=== PATIENT | female | born 1965 | race Caucasian/White ===

== ENCOUNTER → 2017-03-30 | Outpatient (CLI) | payer BC ==
[~2017-03-30] MED LIST: ALDACTONE PO; ATARAX PO; CYMBALTA PO; CYMBALTA30 MG PO; LANOXIN PO; LASIX PO; PREDNISONE PO; PREMARIN PO; PRINIVIL10 MG PO; PROTONIX PO; PROVIGIL PO; PROVIGIL100 MG PO; SYNTHROID PO; SYNTHROID75 MCG PO; ZOLOFT PO
--- NOTE | ~2017-03-30 | MY11 ---
[facility] A Service of [facility] & [facility] RADIOLOGY TEXT RESULTS PATIENT: BIJAL VARGAS LOCATION: [facility] : 63 UNIT #: [id number] AGE: [address]: Ermias Lay II, MD SEX: F ORDER DR: [id number] [facility] [address]. [place], [place] [address] [id number] O MR#: [id number] #: [id number] NAME: BIJAL VARGAS : 1965 SEX: F STUDY DATE/TIME: 03/30/2017 14:59 UNIT: [facility] ROOM: STUDY DESCRIPTION: MY Mammogram Screening Dig Rusty Attending Physician: Ermias Lay M.D. Ordering Physician: Ermias Lay M.D. Primary Care Physician: Ermias Lay M.D. MEDICAL IMAGING REPORT This report is preliminary unless electronic signature is present EXAM Digital screening mammogram 03/30/2017 HISTORY 52-year-old woman, previous breast reduction surgery with augmentation. Right breast implant deflated. No risk elevation. Annual screen. COMPARISON STUDIES 02/25/2011, 03/27/2013, 01/23/2015 FINDINGS Digital imaging of each breast was completed utilizing conventional projections and standard Dat views on the left and conventional projections on the right. Review includes FDA-approved CAD device. Retropectoral saline implant on the left is stable. There is no visible implant on the right side at this time. Breast parenchyma is moderately dense with combination of fibroglandular opacities and fibronodularity. I see no dominant mass and no suspicious microcalcifications. However, in the right breast there is a small area of subtle stellate architectural distortion projecting centrally deep to the nipple and slightly medial to the nipple line. Characteristics favor a radial scar. This will require additional imaging to include true lateral projection and high-resolution spot compression views. Digital breast tomosynthesis would be very useful. With this in mind [facility] Benign appearance of the left breast is stable. IMPRESSION Incomplete mammographic evaluation. Additional right breast imaging is recommended. See full report with recommendations. That is a BIRADS 0 additional right breast imaging recommended. Patients over the age of 40 are entered into a reminder system with target STS. [facility] A Service of [facility] & [facility] RADIOLOGY TEXT RESULTS PATIENT: BIJAL VARGAS LOCATION: [facility] : 63 UNIT #: [id number] AGE: [address]: Ermias Lay II, MD SEX: F ORDER DR: due date for the next mammogram. A result letter will also be sent to the patient. BIRADS: 0 - Need additional imaging evaluation and/or prior mammograms for comparison STAT * RESULT Dictated by... Black Sanders M.D. THIS IS AN ELECTRONICALLY VERIFIED REPORT Black Sanders M.D. at 03/30/2017 3:42 PM Marzena TD: 03/30/2017 15:30 JOB #: [id number] MEDICAL IMAGING REPORT Page 1 of 1 COPY
== END | disposition home or self-care (01) ==
LOC: CMAM 14:47
DX: Z12.31 Encounter for screening mammogram for malignant neoplasm of breast (principal); Z98.82 Breast implant status; R92.8 Other abnormal and inconclusive findings on diagnostic imaging of breast
CPT/HCPCS: G0202

== ENCOUNTER → 2017-04-07 | Outpatient (CLI) | payer BC ==
--- NOTE | ~2017-04-07 | MY8 ---
[facility] A Service of [facility] & [facility] RADIOLOGY TEXT RESULTS PATIENT: BIJAL VARGAS LOCATION: [facility] : 63 UNIT #: [id number] AGE: [address]: Ermias Lay II, MD SEX: F ORDER DR: [id number] [facility] [address] [place], [place] [address] [id number] O MR#: [id number] Acc #: [id number] NAME: BIJAL VARGAS : 1965 SEX: F STUDY DATE/TIME: 04/07/2017 12:25 UNIT: [facility] ROOM: STUDY DESCRIPTION: MY Mammogram Dx Dig Rt Attending Physician: Ermias Lay M.D. Referring Physician: Ermias Lay M.D. Ordering Physician: Ermias Lay M.D. Primary Care Physician: Ermias Lay M.D. MEDICAL IMAGING REPORT This report is preliminary unless electronic signature is present EXAM Right breast digital diagnostic mammogram with CAD DATE 04/07/2017 HISTORY Questionable architectural distortion on right breast on previous screening mammogram for which additional diagnostic imaging was recommended. History of prior bilateral breast reduction with augmentation, right breast implant deflated. COMPARISON Bilateral screening mammogram 03/30/2017, 01/23/2015, 03/27/2013 FINDINGS True ML views were obtained of the right breast utilizing digital technique and reviewed with an FDA-approved CAD device. Heterogeneously dense fibroglandular tissue is present within the right breast. No focal or suspicious nodule is identified. High-resolution spot magnification view was obtained of the right breast in the medial hemisphere at the site of concern denoted on previous screening mammogram images. No architectural distortion features are seen on today's examination. I suspect that the question abnormality was artifactual on the previous screening exam. In fact, the medial hemisphere of the right breast has a very similar appearance to the more remote 01/23/2015 examination. No suspicious cluster of microcalcification is seen. Benign calcifications are present in the medial right breast. No abnormal skin thickening. No nipple retraction. IMPRESSION No features suspicious for malignancy on today's examination. The [facility] A Service of [facility] RADIOLOGY TEXT RESULTS PATIENT: BIJAL VARGAS LOCATION: [facility] : 63 UNIT #: [id number] AGE: [address]: Ermias Lay II, MD SEX: F ORDER DR: questioned abnormality on the previous screening mammogram was likely artifactual. It is recommended the patient return to a routine bilateral screening cycle in 1 year. Patient is advised to continue monthly self-breast examination and physician physical examination. The findings and recommendations were discussed with the patient today in the radiology department. Patient's over the age of 40 are entered into a reminder system with target due date for the next mammogram. A result letter will be sent to the patient. BIRADS: 1 Negative Dictated by... Dai Good M.D. THIS IS AN ELECTRONICALLY VERIFIED REPORT Dai Good M.D. at 04/08/2017 2:[address] [facility]/marco antonio TD: 04/07/2017 15:23 JOB #: [id number] MEDICAL IMAGING REPORT Page 1 of 1 COPY
== END | disposition home or self-care (01) ==
LOC: CMAM 11:59
DX: R92.8 Other abnormal and inconclusive findings on diagnostic imaging of breast (principal)
CPT/HCPCS: G0206